=== PATIENT | male | born 1970 | race Caucasian/White ===

== ENCOUNTER → 2021-09-24 | Outpatient (CLI) | payer BC | END | disposition home or self-care (01) | LOC: PREOP 07:58 | PROVIDERS: ATTEND Specialist | DX: Z01.818 Encounter for other preprocedural examination (principal) ==

== ENCOUNTER 2023-04-01 07:58 | Day surgery (SDC) | payer BC ==
[~2023-04-01] VITALS: Ht 185.5 cm; Wt 136.4 kg
[~2023-04-01 07:58] MED LIST: LOSA25TA41 PO; LOSA50TA63 PO
[2023-04-01] MEDS: TETRACAINE 0.5% OPHTH SOLN 4 ML BTL (SINGLE DOSE ONLY) OU PRN ×4 (08:40→08:56)
[2023-04-01] MEDS ORDERED: MOXIFLOXACIN OPHTH SOLN 5 MG/ML 0.5 ML SYRINGE OP ONE (08:45)
[2023-04-01] MEDS ORDERED: LIDOCAINE PF 1% 2 ML VIAL IR PRN (08:45)
[2023-04-01] MEDS ORDERED: POVIDONE IODINE OPHTH SOLN 5% 30 ML OP ONE (08:45)
[2023-04-01] MEDS ORDERED: TIMOLOL 0.5% (CATARACTS) 0.3 ML BTL OU PRN (08:45)
[2023-04-01] MEDS: TROPICAMIDE 1% OPH SOLN (MYDRIACYL) 15 ML BTL OP SCH ×3 (08:46→08:56)
[2023-04-01] MEDS: PHENYLEPHRINE 10% OPHTH SOLN 5 ML BTL OU SCH ×3 (08:46→08:56)
[2023-04-01 08:48] VITALS: BP 149/98
--- NOTE | 2023-04-01 09:03 | Ophthalmologist Pre-Op Note ---
Pre-Operative Progress Note H&P Reviewed The H&P was reviewed, patient examined and no changes noted. Date H&P Reviewed: Apr 01, 2023 Time H&P Reviewed: 09:03 Pre-Op Dx Cataract, Left Eye JILLIAN FLOWER MD Apr 01, 2023 09:03
[2023-04-01] MEDS ORDERED: MIDAZOLAM INJ 2 MG/2 ML VIAL ONE (09:07)
--- NOTE | 2023-04-01 09:27 | Ophthalmology Operative Report ---
Cataract removal/placement IOL PREOPERATIVE DIAGNOSIS: 1. Mature Cataract Left Eye 2. Stain the anterior capsule with Vision Blue. POSTOPERATIVE DIAGNOSIS: 1. Mature Cataract Left Eye 2. Stain the anterior capsule with Vision Blue. PROCEDURE: 1. Cataract removal and placement of posterior chamber implant, left eye. 2. Stain the anterior capsule with Vision Blue. SURGEON: Roscoe Flower ANESTHESIA: Topical with sedation COMPLICATIONS: None ESTIMATED BLOOD LOSS: Minimal DESCRIPTION OF PROCEDURE: After proper informed consent was obtained, the patient, 53 male ,was taken to the Operating Room and the left eye was anesthetized with tetracaine. The left eye was then prepped and draped in the usual manner. A wire lid speculum was placed. A paracentesis was made at the left hand position. Preservative free lidocaine was injected into anterior chamber followed by viscoelastic. A clear corneal incision was made in the temporal position. A capsulorrhexis was performed and the central nuclear and cortical material were removed. Vision blue was used to visualize capsule. The posterior capsule was polished and Eron 20.5 CNA0T0 20.5 IOL was placed into the capsular bag. The residual viscoelastic was aspirated and balanced saline solution was injected into the anterior chamber. Moxifloxacin was injected into the anterior chamber. The wound was checked and found to be water tight. The patient tolerated the procedure well without complications. ROSCOE FLOWER MD Apr 01, 2023 09:27
[2023-04-01 09:35] VITALS: BP 132/82
--- NOTE | 2023-04-01 12:12 | Anesthesia-General Post-Op ---
MAC Patient Condition Mental Status/LOC: Same as Preop Cardiovascular: Satisfactory Nausea/Vomiting: Absent Respiratory: Satisfactory Pain: Controlled Complications: Absent Post Op Complications Complications None Follow Up Care/Instructions Patient Instructions None needed. Anesthesiology Discharge Order Discharge Order Patient was doing well this morning after the procedure with no complaints, stable vital signs, no apparent adverse anesthesia problems. No complications reported per nursing. SHILPA SWAIN DO Apr 01, 2023 12:12
== END 2023-04-01 09:45 | disposition home or self-care (01) ==
LOC: SDC 07:58
PROVIDERS: ATTEND Specialist
DX: H25.89 Other age-related cataract (principal); E66.9 Obesity, unspecified; F17.200 Nicotine dependence, unspecified, uncomplicated; Z68.39 Body mass index [BMI] 39.0-39.9, adult
CPT/HCPCS: 66984; V2632

== ENCOUNTER 2023-04-11 08:36 | Outpatient (RCR) | payer BC | END 2023-04-26 | disposition home or self-care (01) | LOC: ONC 08:36 | PROVIDERS: ATTEND Radiology Radiation Oncology | DX: C61 Malignant neoplasm of prostate (principal) | CPT/HCPCS: 99205 ==

== ENCOUNTER → 2023-04-14 | Outpatient (CLI) | payer BC ==
[~2023-04-14] MED LIST changes: +CATHETER FLUSH 10 ML SYR IVP PRN
--- NOTE | 2023-04-14 16:15 | Diagnostic Imaging Report ---
INDICATION: Initial staging prostate carcinoma. TECHNIQUE: Patient was administered 9.4 mCi F-18 Pylarify, and imaging was performed from the top of the skull to the mid thighs. Noncontrast CT was also performed for attenuation correction and anatomic correlation. No prior studies are available for comparison. FINDINGS: There is physiologic activity within the lacrimal and salivary glands. Physiologic activity in the liver and spleen and kidneys is also noted. There is physiologic activity in the GI tract. No abnormal foci are identified with exception of focus of uptake in the midline prostate gland. No abnormal uptake within the abdominal or pelvic lymph nodes is detected. IMPRESSION: Solitary focus of abnormal uptake involving the prostate gland. No other suspicious abnormality is seen. Dictated by: Dictated on workstation # [id number]
== END ==
LOC: RAD 11:25
PROVIDERS: ATTEND Specialist
DX: C61 Malignant neoplasm of prostate (principal)
CPT/HCPCS: 78815; A9595